=== PATIENT | female | born 1975 | race Caucasian/White ===

== ENCOUNTER 2021-05-07 05:32 | Observation (INO) | payer BC, OTHER ==
[~2021-05-07] VITALS: Ht 170.2 cm; Wt 65.9 kg
[~2021-05-07 05:32] MED LIST: CYCL5TAB4 PO; DIPH25CA83 PO; MELA1TAB16 PO; PHEN-434 PO; SUMA50TA PO; ZALE10CA PO
[2021-05-07 06:16] LABS: BASOPHILS % (AUTO) 0.3 % (0-1); EOSINOPHILS % (AUTO) 0.3 % (0-6); HEMATOCRIT 39.7 % (35.0-45.0); HEMOGLOBIN 13.3 g/dl (12.0-16.0); LYMPHOCYTES # (AUTO) 0.7 X10'3 (1.1-4.8); MEAN CORPUSCULAR HEMOGLOBIN 33.4 PG (27.0-31.0); MEAN CORPUSCULAR HGB CONC 33.5 g/dL (33.0-36.5); MEAN CORPUSCULAR VOLUME 99.5 FL (78-98); MEAN PLATELET VOLUME 7.4 FL (7.4-10.4); MONOCYTES # (AUTO) 0.2 X10'3 (0-0.9); MONOCYTES % (AUTO) 3.2 % (2-12); NEUTROPHILS # (AUTO) 6.1 X10'3 (1.8-7.7); NEUTROPHILS % (AUTO) 86.2 % (42-75); PLATELET COUNT 149 X10'3 (140-440); RED BLOOD COUNT 3.99 X10'6 (4.20-5.60); RED CELL DISTRIBUTION WIDTH 15.6 % (11.5-14.5)
[2021-05-07 06:22] LABS: CLARITY,URINE CLEAR (Clear); COLOR,URINE YELLOW (Yellow); GLUCOSE, URINE NEGATIVE (Neg); KETONES,URINE NEGATIVE (Neg); LEUKOCYTE ESTERASE ,URINE SMALL (Neg); NITRITES, URINE NEGATIVE (Neg); OCCULT BLOOD,URINE NEGATIVE (Neg); PH,URINE 7.5 (4.8-8.0); PROTEIN,URINE NEGATIVE (Neg); UROBILINOGEN,URINE 0.2 E.U/dL (0.2-1.0)
[2021-05-07 06:27] LABS: RBC,URINE NONE SEEN /HPF (0-2); UA COLLECTION TYPE URINAL; WBC,URINE 0-4 /HPF (0-4)
[2021-05-07 06:27] LABS: ALANINE AMINOTRANSFERASE 39 U/L (12-78); ALBUMIN/GLOBULIN RATIO 1.2 (1.1-1.5); ALKALINE PHOSPHATASE 83 IU/L (46-116); ANION GAP 9 (8-16); ASPARTATE AMINO TRANSFERASE 48 U/L (10-37); BILIRUBIN,TOTAL 1.5 MG/DL (0.1-1.0); BLOOD UREA NITROGEN 5 MG/DL (7-18); BUN/CREATININE RATIO 6.8 (6.6-38.0); CALCIUM 8.4 MG/DL (8.5-10.1); CHLORIDE 95 MMOL/L (99-107); CREATININE 0.73 MG/DL (0.40-0.90); GLUCOSE 110 MG/DL (70-104); POTASSIUM 3.9 MMOL/L (3.5-5.1); SODIUM 132 MMOL/L (135-145); TOTAL CARBON DIOXIDE 27.6 MMOL/L (24-32); TOTAL PROTEIN 7.4 G/DL (6.4-8.2); eGFR 86 ML/MIN
[2021-05-07 06:28] LABS: BACTERIA,URINE NONE SEEN /HPF (Neg); MUCUS STRANDS FEW /LPF (Neg); SQUAMOUS EPITHELIAL CELL,UR FEW /LPF (FEW)
[2021-05-07] MEDS ORDERED: normal saline 1000ML IV soln IVB ONE (06:50)
[2021-05-07 07:14] LABS: ETHANOL < 0.010 GM/DL (0.0-0.010)
[2021-05-07 07:17] LABS: URINE AMPHETAMINE SCREEN NEGATIVE (Neg); URINE BARBITUATE SCREEN NEGATIVE (Neg); URINE BENZODIAZEPINES SCREEN NEGATIVE (Neg); URINE CANNABINOID SCREEN POSITIVE (Neg); URINE COCAINE SCREEN NEGATIVE (Neg); URINE METHADONE SCREEN NEGATIVE (Neg); URINE OPIATE SCREEN NEGATIVE (Neg); URINE PHENCYCLIDINE SCREEN NEGATIVE (Neg)
[2021-05-07] MEDS ORDERED: potassium Cl 20 mEq SR tablet PO PRN ×2 (13:15)
[2021-05-07] MEDS ORDERED: mag hydrox/Alum hydrox/simeth 30ml oral suspension PO PRN (13:15)
[2021-05-07] MEDS ORDERED: acetaminophen 325mg tablet PO PRN ×2 (13:15)
[2021-05-07] MEDS ORDERED: ondansetron/PF 4mg/2ml inj IV PRN (13:15)
[2021-05-07] MEDS ORDERED: magnesium 4gm in 100ml NS 100 ML IV PRN (13:15)
[2021-05-07] MEDS ORDERED: magnesium Cl slow-release 64mg tablet PO PRN (13:15)
[2021-05-07] MEDS ORDERED: magnesium 2GM in 50ml NS 50 ML IV PRN (13:15)
[2021-05-07] MEDS ORDERED: magnesium hydroxide 30ml (MOM) UD suspension PO PRN (13:15)
[2021-05-07] MEDS ORDERED: potassium CL 10mEq/100ml bag 100 ML IV PRN (13:15)
[2021-05-07] MEDS ORDERED: bisacodyl 10mg suppository rectal RC PRN (13:15)
[2021-05-07] MEDS ORDERED: HYDROcodone/acetaminophen 10/325mg tab PO PRN (13:15)
[2021-05-07 13:52] LABS: MAGNESIUM 1.4 MG/DL (1.5-2.4); PHOSPHORUS 4.6 MG/DL (2.3-4.5)
--- NOTE | 2021-05-07 14:57 | NUR ---
Patient in room ED 7. I have received report from Torrie OSMAN and had the opportunity to ask questions and assume patient care.
--- NOTE | 2021-05-07 15:03 | NUR ---
Message: [id number] : Dr. Werner will be in to see him today per his return text. Sintia [id number] Addendum: 05/07/21 at 1503 by Sintia Pineda RN Wrong patient.
[2021-05-07] MEDS: normal saline 1000ml 1,000 ML IV SCH ×2 (15:18→23:47)
--- NOTE | 2021-05-07 15:23 | NUR ---
Patient on the unit
--- NOTE | 2021-05-07 15:25 | NUR ---
Patient walked from the hallway across the room to the restroom independently, walked steady without help and tolerated well. Patient walked from the restroom back to bed without any issues.
[2021-05-07 16:05] VITALS: BP 104/62
[2021-05-07] MEDS ORDERED: NO HOME MEDS (16:38)
--- NOTE | 2021-05-07 16:51 | NUR ---
Patient off the unit to MRI by [facility]E
--- NOTE | 2021-05-07 17:27 | NUR ---
Student documentation: I have reviewed all interventions, assessments performed and documented by Poornima ZAVALA with [facility]. . Student Medication Administration: For all medication-pass' this shift, all medications were reviewed, dispensed, administered and documented per hospital policy by Poornima ZAVALA with [facility].
[2021-05-07] MEDS ORDERED: GADOTERATE MEGLUMINE 7.5 MMOL/15 ML VIAL IV ONE (18:06)
--- NOTE | 2021-05-07 18:13 | NUR ---
Problems reprioritized. Patient report given, questions answered & plan of care reviewed with melecio Horne .
[2021-05-07] MEDS: docusate sod 100mg capsule PO SCH (19:51)
[2021-05-07] MEDS: K and/or MAG REPLACEMENT MC SCH (19:52)
[2021-05-07 20:00] VITALS: BP 99/67
[2021-05-07] MEDS ORDERED: temazepam 15mg capsule PO PRN (21:00)
[2021-05-08] VITALS: BP 104/72
[2021-05-08] MEDS: HYDROcodone/acetaminophen 5mg/325mg tablet PO PRN ×4 (03:59→19:43)
--- NOTE | 2021-05-08 06:30 | NUR ---
Patient in room [facility]. I have received report from HIEU Niño and had the opportunity to ask questions and assume patient care.
[2021-05-08 06:34] LABS: ALANINE AMINOTRANSFERASE 35 U/L (12-78); ALBUMIN 3.1 G/DL (3.4-5.0); ALBUMIN/GLOBULIN RATIO 1.2 (1.1-1.5); ALKALINE PHOSPHATASE 82 IU/L (46-116); ANION GAP 8 (8-16); ASPARTATE AMINO TRANSFERASE 37 U/L (10-37); BLOOD UREA NITROGEN 6 MG/DL (7-18); BUN/CREATININE RATIO 9.8 (6.6-38.0); CALCIUM 7.9 MG/DL (8.5-10.1); CHLORIDE 107 MMOL/L (99-107); CREATININE 0.61 MG/DL (0.40-0.90); GLUCOSE 91 MG/DL (70-104); MAGNESIUM 1.7 MG/DL (1.5-2.4); SODIUM 140 MMOL/L (135-145); TOTAL CARBON DIOXIDE 25.4 MMOL/L (24-32); TOTAL PROTEIN 5.6 G/DL (6.4-8.2); eGFR > 90 ML/MIN
[2021-05-08 06:37] LABS: BASOPHILS % (AUTO) 0.5 % (0-1); EOSINOPHILS # (AUTO) 0.1 X10'3 (0-0.9); EOSINOPHILS % (AUTO) 2.6 % (0-6); HEMATOCRIT 34.2 % (35.0-45.0); HEMOGLOBIN 11.4 g/dl (12.0-16.0); LYMPHOCYTES # (AUTO) 1.3 X10'3 (1.1-4.8); LYMPHOCYTES % (AUTO) 27.2 % (21-51); MEAN CORPUSCULAR HGB CONC 33.4 g/dL (33.0-36.5); MEAN PLATELET VOLUME 8.3 FL (7.4-10.4); MONOCYTES # (AUTO) 0.3 X10'3 (0-0.9); MONOCYTES % (AUTO) 5.5 % (2-12); NEUTROPHILS % (AUTO) 64.2 % (42-75); PLATELET COUNT 129 X10'3 (140-440); RED BLOOD COUNT 3.46 X10'6 (4.20-5.60); WHITE BLOOD COUNT 4.6 X10'3 (4.5-11.0)
--- NOTE | 2021-05-08 06:54 | NUR ---
late entry 05/07/21 dr castellano was notified that pt c/o headache pain unrelieved from tylenol. dr castellano reviewed pts chart . no orders pt informed
[2021-05-08 07:00] VITALS: BP 124/78
[2021-05-08] MEDS: docusate sod 100mg capsule PO SCH ×2 (07:52→20:00)
[2021-05-08] MEDS: enoxaparin 40mg/0.4ml syringe SUBCUT SCH (07:53)
--- NOTE | 2021-05-08 07:59 | NUR ---
Pt reports she is not currently taking prescribed meds. But stated " I took a Klonopin my friend gave me to help me settle down the other night."
[2021-05-08] MEDS: K and/or MAG REPLACEMENT MC SCH ×2 (08:00→19:53)
[2021-05-08] MEDS: normal saline 1000ml 1,000 ML IV SCH ×5 (09:15→23:37)
--- NOTE | 2021-05-08 10:22 | NUR ---
Malnutrition consult: Pt admitted w/ recent Covid in early March and generalized fatigue per EMR. Pt had reportedly gotten more weak and confused in the last couple days and not been able to eat much. Currently on Regular diet w/ 75% intake of first meal. Pt unsure of wt loss per MST, no reliable scaled wt hx in EMR. Pt appears WD/WN per MD note. No edema noted and pt has normal muscle strength. At this time pt does not meet minimum criteria for malnutrition, will continue to monitor. Addendum: 05/08/21 at [address] Amended: Links added.
[2021-05-08 11:00] VITALS: BP 117/87
[2021-05-08 19:00] VITALS: BP 116/79
--- NOTE | 2021-05-08 19:00 | NUR ---
Patient in room [facility]. I have received report from Lucia OSMAN and had the opportunity to ask questions and assume patient care.
[2021-05-08] MEDS: magnesium Cl slow-release 64mg tablet PO SCH (19:42)
[2021-05-08] MEDS: Neutra Phos packet PO SCH (19:53)
[2021-05-08] MEDS ORDERED: diphenhydrAMINE 25mg capsule PO SCH (21:00)
[2021-05-09 00:11] VITALS: BP 107/79
[2021-05-09] MEDS: HYDROcodone/acetaminophen 5mg/325mg tablet PO PRN ×3 (00:37→10:06)
--- NOTE | 2021-05-09 06:05 | NUR ---
Problems reprioritized. Patient report given, questions answered & plan of care reviewed with Jillian OSMAN.
--- NOTE | 2021-05-09 06:13 | NUR ---
Change diet to regular with no wheat or dairy as patient upset with food yesterday. However, patient requested contreras crackers when she awoke stating that she could eat those.
[2021-05-09 06:15] LABS: BASOPHILS % (AUTO) 0.8 % (0-1); EOSINOPHILS # (AUTO) 0.2 X10'3 (0-0.9); EOSINOPHILS % (AUTO) 5.5 % (0-6); HEMATOCRIT 31.7 % (35.0-45.0); HEMOGLOBIN 10.8 g/dl (12.0-16.0); LYMPHOCYTES % (AUTO) 29.4 % (21-51); MEAN CORPUSCULAR HEMOGLOBIN 33.8 PG (27.0-31.0); MEAN CORPUSCULAR HGB CONC 34.1 g/dL (33.0-36.5); MEAN PLATELET VOLUME 8.4 FL (7.4-10.4); MONOCYTES # (AUTO) 0.2 X10'3 (0-0.9); MONOCYTES % (AUTO) 4.8 % (2-12); NEUTROPHILS # (AUTO) 2.1 X10'3 (1.8-7.7); NEUTROPHILS % (AUTO) 59.5 % (42-75); PLATELET COUNT 106 X10'3 (140-440); RED CELL DISTRIBUTION WIDTH 15.3 % (11.5-14.5); WHITE BLOOD COUNT 3.5 X10'3 (4.5-11.0)
[2021-05-09 06:40] LABS: ALANINE AMINOTRANSFERASE 59 U/L (12-78); ALBUMIN 2.9 G/DL (3.4-5.0); ALBUMIN/GLOBULIN RATIO 1.1 (1.1-1.5); ANION GAP 2 (8-16); ASPARTATE AMINO TRANSFERASE 97 U/L (10-37); BILIRUBIN,TOTAL 0.5 MG/DL (0.1-1.0); BLOOD UREA NITROGEN 4 MG/DL (7-18); BUN/CREATININE RATIO 8.5 (6.6-38.0); CALCIUM 7.7 MG/DL (8.5-10.1); CHLORIDE 107 MMOL/L (99-107); CREATININE 0.47 MG/DL (0.40-0.90); GLUCOSE 83 MG/DL (70-104); MAGNESIUM 1.6 MG/DL (1.5-2.4); PHOSPHORUS 3.9 MG/DL (2.3-4.5); POTASSIUM 3.7 MMOL/L (3.5-5.1); SODIUM 138 MMOL/L (135-145); TOTAL CARBON DIOXIDE 29.3 MMOL/L (24-32); TOTAL PROTEIN 5.5 G/DL (6.4-8.2); eGFR > 90 ML/MIN
[2021-05-09 06:55] LABS: ALKALINE PHOSPHATASE 70 IU/L (46-116)
--- NOTE | 2021-05-09 06:58 | NUR ---
Patient in room [facility]. I have received report from zoey reynaga and had the opportunity to ask questions and assume patient care.
[2021-05-09 07:19] VITALS: BP 91/58
[2021-05-09] MEDS: K and/or MAG REPLACEMENT MC SCH (07:32)
[2021-05-09] MEDS: Neutra Phos packet PO SCH (07:32)
[2021-05-09] MEDS: docusate sod 100mg capsule PO SCH (07:32)
[2021-05-09] MEDS: magnesium Cl slow-release 64mg tablet PO SCH (07:39)
[2021-05-09] MEDS: enoxaparin 40mg/0.4ml syringe SUBCUT SCH (07:40)
[2021-05-09 12:28] VITALS: BP 116/76
[2021-05-09] MEDS ORDERED: ESCI5TAB PO (14:45)
--- NOTE | 2021-05-09 15:20 | NUR ---
CALLED REPORT TO SHALINI TO [facility].
--- NOTE | 2021-05-09 16:42 | NUR ---
PT DISCHARGED IN STABLE CONDITION. LEFT IN PRIVATE VEHICLE WITH FAMILY. IV DC [facility]ULA INTACT. FOLLOW UP INSTRUCTIONS GIVEN, ALL QUESTIONS ANSWERED. Addendum: 05/09/21 at 1645 by Sarah Hernandes RN Amended: Links added.
== END 2021-05-09 16:25 | disposition home or self-care (01) ==
LOC: ER 05:32 → ED HOLD 13:18 → EDBEDREQ 14:35 → SUR 3N 15:05
PROVIDERS: ADMIT Family Medicine; ATTEND Family Medicine
DX: R53.83 Other fatigue (principal); F41.0 Panic disorder [episodic paroxysmal anxiety]; R53.81 Other malaise; E83.42 Hypomagnesemia; G47.00 Insomnia, unspecified; Z86.16 Personal history of COVID-19; Z98.82 Breast implant status; Z98.891 History of uterine scar from previous surgery; Z79.899 Other long term (current) drug therapy
CPT/HCPCS: 36415; 70450; 70553; 71045; 80053; 80305; 80320; 81001; 82948; 83605; 83735; 83880; 84100; 84145; 84443; 84484; 85025; 85651; 87040; 87088; 93005; 96360; 96361; 96372; 97110; 97116; 97162; 99285; A9575; G0378; J1650; J7030; Q0163